=== PATIENT | female | born 1965 | race Hispanic/Latino ===

== ENCOUNTER 2016-12-29 09:10 | Day surgery (SDC) | payer OTHER ==
[~2016-12-29] VITALS: Ht 152.4 cm; Wt 58.0 kg
[~2016-12-29 09:10] MED LIST: 0.9% Sodium Chloride 1,000 ML IV SCH; DIPH25CA6 PO; NAPR220C11 PO; POLY17PO6 PO; RIZA10TA28 PO; Sodium Chloride LOK Flush 10 mL Syringe IV PRN; fentaNYL-PF 50 mCg/mL 2 mL Inj IVPUSH PRN
[2016-12-29] MEDS ORDERED: LORA10CA PO (09:34)
[2016-12-29 09:35] VITALS: BP 127/80; PULSE 78; RESP 16; O2SAT 98
--- NOTE | 2016-12-29 10:38 | PCM.ENDCOL ---
Colonoscopy Date of Service: Dec 29, 2016 Physician Randolph Chavez MD Pre Procedure Diagnosis: Screening no family history of colon cancer polyp Post Procedure Dx & Findings: Lipoma hemorrhoids diverticuli Procedure Colonoscopy PROCEDURE IN DETAIL: Prep adequate Withdrawal time10 min After unremarkable rectal examination the Olympus video colonoscope was inserted patient's anal canal and was advanced to cecum. Landmarks were identified including the ileocecal valve and appendiceal orifice. Scope was withdrawn systematically. Visualized colonic mucosa showed healthy shiny mucosa with normal healthy-appearing vasculature. In the transverse colon distally, there was a 1-1/2 cm lipomatous structure with positive pillow sign. Biopsy obtained. Underneath the biopsy, was able to see fatty tissue. In the sigmoid colon and on the right side of the colon including the cecum, there a few medium-sized diverticula In the rectum retroflexion was done which showed hemorrhoids. Anal canal was inspected carefully on the way out and hemorrhoids noted. Impression Lipoma Diverticula Hemorrhoids Recommendation Repeat colonoscopy in 10 years if there is no personal or family history of colon cancer or polyps. Otherwise repeat colonoscopy in 5 years. Diverticular diet Presedation Assessment Risks and Benefits Informed consent was obtained from the patient after all risks and benefits including but not limited to drug reaction, infection, pain, bleeding, perforation, as well as alternatives were discussed. Patient monitoring Continuous pulse oximetry, cardiac monitoring, blood pressure monitoring, IV access, and oxygen at 2L per nasal cannula. Periprocedural Fentanyl: Fentanyl 75mcg Incrementally Midazolam: Midazolam 3mg Incrementally Complications There were no periprocedural complications identified. Post Procedure Plan Post Procedure Recommendations 1. Restrict activities today. 2. Resume normal activities in the morning. 3. Resume medications. 4. Patient informed of normal post procedure side effects as bloating, drowsiness, blood streaking in the stool. 5. average risk CRCS. If colon polyps come back as: -Hyperplastic- can repeat colonoscopy in 10 years -Tubular adenoma- repeat colonoscopy in 5 years -Tubulovillous/villous adenoma- repeat colonoscopy in 3 years -If any dysplasia- return to clinic as soon as possible 6. Please don't hesitate to call me with any questions. Randolph Chavez MD Dec 29, 2016 10:38
[2016-12-29 10:39] VITALS: BP 111/65; PULSE 68; RESP 12; O2SAT 97
[2016-12-29 10:48] VITALS: BP 105/62; PULSE 65; RESP 14; O2SAT 99
[2016-12-29 10:58] VITALS: BP 115/66; PULSE 65; RESP 14; O2SAT 100
[2016-12-29 11:06] VITALS: BP 113/70; PULSE 70; RESP 14; O2SAT 100
--- NOTE | 2016-12-30 15:34 | PATH ---
SURGICAL PATHOLOGY Attending Physician:Randolph Chavez M.D. CASE STATUS: Signed Out PATIENT NAME: ERIN HARP PID: [id number] : 1965 DATE COLLECTED:12/29/2016 18:08 SPECIMEN: Colon, Biopsy CLINICAL HISTORY: 1). DESENDING COLON BIOPSY FINAL DIAGNOSIS: Descending Colon, Biopsy: Colonic mucosa with no significant diagnostic abnormality. Negative for active, chronic and microscopic colitis. Negative for dysplasia and malignancy. ICD10 R10.9 GROSS DESCRIPTION: The specimen is received in one formalin filled container labeled with the patient's name, sublabeled "descending" and consists of a 0.3 x 0.3 x 0.3 CM portion of tissue which is entirely submitted in one cassette. 12/29/2016 [facility] ICD-9 CODES: CPT CODES: 1: 30106 Electronically Signed Out Reena Butt MD [facility] Pathology [facility] [address], [place] [address] Technical component performed at [facility], [facility] [address], [place], [address]
== END 2016-12-29 23:59 | disposition home or self-care (01) ==
LOC: END 09:10
PROVIDERS: ATTEND Internal Medicine
DX: Z12.11 Encounter for screening for malignant neoplasm of colon (principal); D17.5 Benign lipomatous neoplasm of intra-abdominal organs; K57.30 Diverticulosis of large intestine without perforation or abscess without bleeding; K64.8 Other hemorrhoids; E78.5 Hyperlipidemia, unspecified; E11.9 Type 2 diabetes mellitus without complications; F41.8 Other specified anxiety disorders; I10 Essential (primary) hypertension; Z78.0 Asymptomatic menopausal state; G43.909 Migraine, unspecified, not intractable, without status migrainosus
CPT/HCPCS: 45380; 99153; G0500; J7030